=== PATIENT | male | born 1995 | race Caucasian/White ===

== ENCOUNTER 2017-06-01 15:34 | Emergency (ER) | payer SELFPAY ==
--- NOTE | 2017-06-01 16:29 | EDPHYS ---
Physician Documentation [facility] Name: Ed Murillo Age: 22 yrs Sex: Male : 1995 Arrival Date: 06/01/2017 Time: 15:38 Bed 12 Private MD: ED Physician Yusuf Vazquez HPI: 06/01 16:18 This 22 yrs old Male presents to ER via Ambulatory with complaints of kav Toothache. 16:18 The patient presents with broken tooth/teeth, pain, swelling. The problem is located in kav the lower left third molar, lower left second molar, lower left first molar, lower left first bicuspid, lower right first molar, lower right second molar and lower right third molar. Onset: The symptoms/episode began/occurred 3 week(s) ago. Duration: The symptoms are chronic, for 1 month(s). Modifying factors: The symptoms are alleviated by nothing, the symptoms are aggravated by air, chewing, cold fluids, food, hot fluids. Associated signs and symptoms: The patient has no apparent associated signs or symptoms. Severity of symptoms: At their worst the symptoms were moderate, just prior to arrival. The patient has experienced a previous episode, approximately 1 months ago. The patient has not recently seen a physician. no financial means for dental assistance. Historical: - Allergies: 15:51 No Known Allergies; hj - Home Meds: 15:51 None [Active]; hj - PMHx: 15:51 None; hj - PSHx: 15:51 None; hj - Immunization history:: Adult Immunizations unknown. - Social history:: Smoking status: Patient uses tobacco products, Patient/guardian denies using alcohol. - Family history:: not pertinent. - Hospitalizations: : No recent hospitalization is reported. ROS: 16:18 Constitutional: Negative for fever, chills, and weight loss, Eyes: Negative for injury, kav pain, redness, and discharge, Neck: Negative for injury, pain, and swelling, Cardiovascular: Negative for chest pain, palpitations, and edema, Respiratory: Negative for shortness of breath, cough, wheezing, and pleuritic chest pain, Abdomen/GI: Negative for abdominal pain, nausea, vomiting, diarrhea, and constipation, Back: Negative for injury and pain, : Negative for injury, bleeding, discharge, and swelling, MS/Extremity: Negative for injury and deformity, Skin: Negative for injury, rash, and discoloration, Neuro: Negative for headache, weakness, numbness, tingling, and seizure, Psych: Negative for depression, anxiety, suicide ideation, homicidal ideation, and hallucinations, Allergy/Immunology: Negative for hives, rash, and allergies, Endocrine: Negative for neck swelling, polydipsia, polyuria, polyphagia, and marked weight changes, Hematologic/Lymphatic: Negative for swollen nodes, abnormal bleeding, and unusual bruising. 16:18 ENT: Positive for dental pain, Gum pain of the lower right first molar, lower right second molar and lower right third molar, Teeth pain Negative for injury or acute deformity, sore throat, difficulty swallowing, difficulty handling secretions. Exam: 16:18 Constitutional: This is a well developed, well nourished patient who is awake, alert, kav and in no acute distress. Head/Face: Normocephalic, atraumatic. Eyes: Pupils equal round and reactive to light, extra-ocular motions intact. Lids and lashes normal. Conjunctiva and sclera are non-icteric and not injected. Cornea within normal limits. Periorbital areas with no swelling, redness, or edema. Neck: Trachea midline, no thyromegaly or masses palpated, and no cervical lymphadenopathy. Supple, full range of motion without nuchal rigidity, or vertebral point tenderness. No Meningismus. Chest/axilla: Normal chest wall appearance and motion. Nontender with no deformity. No lesions are appreciated. Cardiovascular: Regular rate and rhythm with a normal S1 and S2. No gallops, murmurs, or rubs. Normal PMI, no JVD. No pulse deficits. Respiratory: Lungs have equal breath sounds bilaterally, clear to auscultation and percussion. No rales, rhonchi or wheezes noted. No increased work of breathing, no retractions or nasal flaring. Abdomen/GI: Soft, non-tender, with normal bowel sounds. No distension or tympany. No guarding or rebound. No evidence of tenderness throughout. Back: No spinal tenderness. No costovertebral tenderness. Full range of motion. Skin: Warm, dry with normal turgor. Normal color with no rashes, no lesions, and no evidence of cellulitis. MS/ Extremity: Pulses equal, no cyanosis. Neurovascular intact. Full, normal range of motion. Neuro: Awake and alert, GCS 15, oriented to person, place, time, and situation. Cranial nerves II-XII grossly intact. Motor strength 5/5 in all extremities. Sensory grossly intact. Cerebellar exam normal. Normal gait. Psych: Awake, alert, with orientation to person, place and time. Behavior, mood, and affect are within normal limits. 16:18 ENT: Dental exam: abscess, that is moderate, specifically in the lower right first molar (#30), lower right second molar (#31) and lower right third molar (#32), dental caries, that is moderate, specifically in the lower left third molar (#17), lower left second molar (#18), lower left first molar (#19), lower left second bicuspid (#20), lower right first bicuspid (#28), lower right first molar (#30), lower right second molar (#31) and lower right third molar (#32), gum swelling, that is mild, missing teeth. Vital Signs: 15:51 BP 135 / 79; Pulse 75; Resp 18; Temp 98.2(TE); Pulse Ox 100% on R/A; Weight 56.7 kg; hj Height 5 ft. 7 in. (170.18 cm); Pain 9/10; 15:51 Body Mass Index 19.58 (56.70 kg, 170.18 cm) hj MDM: 15:50 Patient medically screened. kav 16:18 Data reviewed: vital signs, nurses notes. kav Administered Medications: 16:18 CANCELLED (Patient Eloped; change to augmentin): Amoxicillin 875 mg PO once kav 17:12 Drug: [place] (7.5 mg-325 mg) 1 tabs Route: PO; kb1 17:12 Follow up: Response: No adverse reaction; Pain is decreased kb1 17:12 Drug: Augmentin 875 mg Route: PO; kb1 17:12 Follow up: Response: No adverse reaction kb1 Disposition: 17:31 Co-signature as Attending Physician, Yusuf Vazquez MD I agree with the assessment and kdr plan of care. Disposition: 06/01/17 16:28 Discharged to Home. Impression: Dental caries, Dental caries on pit and fissure surface penetrating into dentin, Dental root caries. - Condition is Stable. - Discharge Instructions: Dental Abscess. - Prescriptions for Augmentin 875- 125 mg Oral Tablet - take 1 tablet by ORAL route every 12 hours for 10 days; 20 tablet. Tramadol 50 mg Oral Tablet - take 1 tablet by ORAL route every 8 hours as needed; 20 tablet. - Medication Reconciliation Form, Thank You Letter, Antibiotic Education, Prescription Opioid Use, Work release form form. - Follow up: Private Physician; When: 1 - 2 days; Reason: Recheck today's complaints, Continuance of care, Re-evaluation by your physician. Follow up: Earnest Chavez DDS; When: 1 - 2 days; Reason: Recheck today's complaints, Continuance of care, Re-evaluation by your physician. - Problem is new. - Symptoms are unchanged. Signatures: Yusuf Vazquez MD MD kdr Vern, Katherine, FNP FNP kav Joaquin, Henry RN RN hj Sakshi Mijares RN RN kb1 Corrections: (The following items were deleted from the chart) 16:18 16:16 Amoxicillin 875 mg PO once ordered. linwood palumbo
--- NOTE | 2017-06-01 16:29 | ER ---
Nurse's Notes [facility] Name: Ed Murillo Age: 22 yrs Sex: Male : 1995 Arrival Date: 06/01/2017 Time: 15:38 Bed 12 Private MD: Diagnosis: Dental caries;Dental caries on pit and fissure surface penetrating into dentin;Dental root caries Presentation: 06/01 15:50 Presenting complaint: Patient states: R lower tooth is aching; been bad today but its hj hurting for a couple of days now;. Transition of care: patient was not received from another setting of care. Onset of symptoms was June 01, 2017. Care prior to arrival: None. 15:50 Method Of Arrival: Ambulatory hj 15:50 Acuity: JOAQUIM 4 hj Triage Assessment: 15:51 General: Appears in no apparent distress. uncomfortable, Behavior is calm, cooperative, hj appropriate for age. Pain: Complains of pain in tooth. 15:53 EENT: Reports pain in R lower tooth. hj Historical: - Allergies: 15:51 No Known Allergies; hj - Home Meds: 15:51 None [Active]; hj - PMHx: 15:51 None; hj - PSHx: 15:51 None; hj - Immunization history:: Adult Immunizations unknown. - Social history:: Smoking status: Patient uses tobacco products, Patient/guardian denies using alcohol. - Family history:: not pertinent. - Hospitalizations: : No recent hospitalization is reported. Screenin:52 Abuse screen: Denies threats or abuse. Denies injuries from another. Nutritional hj screening: No deficits noted. Tuberculosis screening: No symptoms or risk factors identified. Fall Risk None identified. Vital Signs: 15:51 BP 135 / 79; Pulse 75; Resp 18; Temp 98.2(TE); Pulse Ox 100% on R/A; Weight 56.7 kg; hj Height 5 ft. 7 in. (170.18 cm); Pain 9/10; 15:51 Body Mass Index 19.58 (56.70 kg, 170.18 cm) ED Course: 15:38 Patient arrived in ED. rg4 15:49 Diandra Merlos FNP is [facility]. kav 15:49 Yusuf Vazquez MD is Attending Physician. kav 15:51 Triage completed. hj 15:51 Arm band placed on right wrist. hj 15:53 Patient has correct armband on for positive identification. Bed in low position. Call light in reach. 16:08 Herminia Obrien, RN is Primary Nurse. iw 16:26 Earnest Chavez DDS is Referral Physician. kav 19:01 No provider procedures requiring assistance completed. hj 19:02 Patient did not have IV access during this emergency room visit. Administered Medications: 16:18 CANCELLED (Patient Eloped; change to augmentin): Amoxicillin 875 mg PO once kav 17:12 Drug: [place] (7.5 mg-325 mg) 1 tabs Route: PO; kb1 17:12 Follow up: Response: No adverse reaction; Pain is decreased kb1 17:12 Drug: Augmentin 875 mg Route: PO; kb1 17:12 Follow up: Response: No adverse reaction kb1 Outcome: 16:28 Discharge ordered by MD. kav 17:13 Patient left the ED. kb1 19:02 Discharged to home ambulatory. 19:02 Condition: stable 19:02 Discharge instructions given to patient, Instructed on discharge instructions, follow up and referral plans. medication usage, Demonstrated understanding of instructions, follow-up care, medications, Prescriptions given X 2. Signatures: Diandra Merlos, POTATO LOADER POTATO LOADER Herminia Calloway, RN ANA Garcia Danielson RN RN hj Garcia, Rubi rg4 Sakshi Mijares RN RN kb1 Corrections: (The following items were deleted from the chart) 15:53 15:51 Pulse 75bpm; Resp 18bpm; Pulse Ox 100% RA; Temp 98.2F Temporal; 56.7 kg; Height 5 hj ft. 7 in.; BMI: 19.5; Pain 9/10; hj
[2017-06-01 17:17] VITALS: BP 135/79; TEMP 98.2; O2SAT 100
[2017-06-01] MEDS ORDERED: AMOX TR/K CLAV 400MG CHEW TAB PO ONE (17:24)
[2017-06-01] MEDS ORDERED: HYDROCODONE/APAP 7.5/325 MG TAB ONE (17:25)
[2017-06-01] MEDS ORDERED: AMOX/K CLAV 875 MG TAB ONE (17:25)
== END 2017-06-01 17:13 | disposition home or self-care (01) ==
LOC: ER 15:34
DX: K02.52 Dental caries on pit and fissure surface penetrating into dentin (principal); K02.7 Dental root caries; Z72.0 Tobacco use
CPT/HCPCS: 99283

== ENCOUNTER 2017-08-01 23:16 | Emergency (ER) | payer OTHER, SELFPAY ==
--- NOTE | 2017-08-02 00:06 | ER ---
Nurse's Notes [facility] Name: Ed Murillo Age: 22 yrs Sex: Male : 1995 Arrival Date: 08/01/2017 Time: 23:18 Bed 6 Private MD: Diagnosis: Allergic rhinitis, unspecified Presentation: 08/01 23:26 Presenting complaint: Patient states: Nasal congestion for a week and a half, tried OTC lp1 Xyzal with not relief; States pain to right nasal passage. Transition of care: patient was not received from another setting of care. Onset of symptoms was August 01, 2017. Risk Assessment: Do you want to hurt yourself or someone else? Patient reports no desire to harm self or others. Initial Sepsis Screen: Does the patient meet any 2 criteria? No. Patient's initial sepsis screen is negative. Does the patient have a suspected source of infection? No. Patient's initial sepsis screen is negative. Care prior to arrival: None. 23:26 Method Of Arrival: Ambulatory lp1 23:26 Acuity: JOAQUIM 4 lp1 Historical: - Allergies: 23:30 No Known Allergies; lp1 - Home Meds: 23:30 None [Active]; lp1 - PMHx: 23:30 None; lp1 - PSHx: 23:30 None; lp1 - Immunization history:: Adult Immunizations up to date. - Social history:: Smoking status: Patient uses tobacco products, smokes one-half pack cigarettes per day. Screenin:31 Abuse screen: Denies threats or abuse. Denies injuries from another. Nutritional lp1 screening: No deficits noted. Tuberculosis screening: No symptoms or risk factors identified. Fall Risk None identified. Assessment: 23:30 General: Appears in no apparent distress. Behavior is calm, cooperative, appropriate lp1 for age. Pain: Complains of pain in right side of nose and right nostril Pain currently is 6 out of 10 on a pain scale. Quality of pain is described as aching. Neuro: Level of Consciousness is awake, alert, obeys commands. Cardiovascular: Patient's skin is warm and dry. Respiratory: Respiratory effort is even, unlabored. GI: No signs and/or symptoms were reported involving the gastrointestinal system. : No signs and/or symptoms were reported regarding the genitourinary system. EENT: No signs and/or symptoms were reported regarding the EENT system. Derm: Skin is pink, warm \T\ dry. Musculoskeletal: Circulation, motion, and sensation intact. Vital Signs: 23:29 BP 128 / 77; Pulse 72; Resp 16; Temp 97.5(O); Pulse Ox 100% on R/A; Weight 54.43 kg; lp1 Height 5 ft. 7 in. (170.18 cm); Pain 6/10; 23:29 Body Mass Index 18.79 (54.43 kg, 170.18 cm) lp1 ED Course: 23:18 Patient arrived in ED. am2 23:26 Ana Alejandre, RN is Primary Nurse. lp1 23:28 Darrius Unger MD is Attending Physician. tw4 23:29 Triage completed. lp1 23:29 Arm band placed on left wrist. lp1 23:31 Patient has correct armband on for positive identification. lp1 05 00:14 No provider procedures requiring assistance completed. Patient did not have IV access mg2 during this emergency room visit. Administered Medications: No medications were administered Outcome: 00:05 Discharge ordered by . tw4 00:14 Discharged to home ambulatory. mg2 00:14 Condition: stable 00:14 Discharge instructions given to patient, Instructed on discharge instructions, follow up and referral plans. medication usage, Demonstrated understanding of instructions, follow-up care, medications, Prescriptions given X 1. 00:14 Patient left the ED. mg2 Signatures: Ana Alejandre, RN RN lp1 Donna Anton am2 Darrius Unger MD MD tw4 Patrick Hillman RN RN mg2
[2017-08-02 00:53] VITALS: BP 128/77; TEMP 97.5; O2SAT 100
--- NOTE | 2017-08-03 00:15 | EDPHYS ---
Physician Documentation [facility] Name: Ed Murlilo Age: 22 yrs Sex: Male : 1995 Arrival Date: 08/01/2017 Time: 23:18 Bed 6 Private MD: ED Physician Darrius Unger HPI: 08/02 00:49 This 22 yrs old Male presents to ER via Ambulatory with complaints of Nasal tw4 Congestion. 00:49 The patient or guardian reports nasal congestion. Onset: The symptoms/episode tw4 began/occurred 1 week(s) ago. Severity of symptoms: At their worst the symptoms were moderate, in the emergency department the symptoms are unchanged. Modifying factors: The symptoms are alleviated by nothing, the symptoms are aggravated by nothing. Associated signs and symptoms: The patient has no apparent associated signs or symptoms. Historical: - Allergies: 08/01 23:30 No Known Allergies; lp1 - Home Meds: 23:30 None [Active]; lp1 - PMHx: 23:30 None; lp1 - PSHx: 23:30 None; lp1 - Immunization history:: Adult Immunizations up to date. - Social history:: Smoking status: Patient uses tobacco products, smokes one-half pack cigarettes per day. ROS: 08/02 00:49 Constitutional: Negative for fever, chills, and weight loss, Cardiovascular: Negative tw4 for chest pain, palpitations, and edema, Respiratory: Negative for shortness of breath, cough, wheezing, and pleuritic chest pain, Abdomen/GI: Negative for abdominal pain, nausea, vomiting, diarrhea, and constipation, Back: Negative for injury and pain. Exam: 00:49 Constitutional: This is a well developed, well nourished patient who is awake, alert, tw4 and in no acute distress. Head/Face: Normocephalic, atraumatic. 00:49 ENT: External ear(s): are unremarkable, Ear canal(s): are normal, Nose: External nose: no obvious acute abnormality, Nasal septum: is midline, Nasal mucosa: normal, Turbinates: are swollen bilaterally. Vital Signs: 08/01 23:29 BP 128 / 77; Pulse 72; Resp 16; Temp 97.5(O); Pulse Ox 100% on R/A; Weight 54.43 kg; lp1 Height 5 ft. 7 in. (170.18 cm); Pain 6/10; 23:29 Body Mass Index 18.79 (54.43 kg, 170.18 cm) lp1 MDM: 23:28 Patient medically screened. tw4 08/02 00:52 Differential Diagnosis: Upper Respiratory Infection Allergic Rhinitis Viral Syndrome. tw4 Data reviewed: vital signs, nurses notes. Counseling: I had a detailed discussion with the patient and/or guardian regarding: the historical points, exam findings, and any diagnostic results supporting the discharge/admit diagnosis. Special discussion: I discussed with the patient/guardian in detail that at this point there is no indication for admission to the hospital. It is understood, however, that if the symptoms persist or worsen the patient needs to return immediately for re-evaluation. Administered Medications: No medications were administered Disposition: 08/02/17 00:05 Discharged to Home. Impression: Allergic rhinitis, unspecified. - Condition is Stable. - Discharge Instructions: Allergies, Hay Fever, Allergic Rhinitis. - Prescriptions for Flonase Allergy Relief 50 mcg/actuation Nasal spray,suspension - inhale 1 spray by INTRANASAL route once daily; 1 unit. - Medication Reconciliation Form, Thank You Letter, Antibiotic Education, Prescription Opioid Use, Work release form form. - Follow up: Private Physician; When: As needed; Reason: Recheck today's complaints, Continuance of care, Re-evaluation by your physician. - Problem is chronic. - Symptoms are unchanged. Signatures: Ana Alejandre RN RN lp1 Darrius Unger MD MD tw4 Patrick Hillman RN RN mg2 Corrections: (The following items were deleted from the chart) 00:14 00:05 08/02/2017 00:05 Discharged to Home. Impression: Allergic rhinitis, unspecified. mg2 Condition is Stable. Forms are Medication Reconciliation Form, Thank You Letter, Antibiotic Education, Prescription Opioid Use. Follow up: Private Physician; When: As needed; Reason: Recheck today's complaints, Continuance of care, Re-evaluation by your physician. Problem is chronic. Symptoms are unchanged. tw4
== END 2017-08-02 00:14 | disposition home or self-care (01) ==
LOC: ER 23:16
DX: J30.9 Allergic rhinitis, unspecified (principal); F17.210 Nicotine dependence, cigarettes, uncomplicated
CPT/HCPCS: 99282

== ENCOUNTER 2017-09-26 06:09 | Emergency (ER) | payer OTHER ==
[2017-09-26] MEDS ORDERED: FLUORESCEIN SODIUM 0.6 MG/WRAP ONE (06:28)
[2017-09-26] MEDS ORDERED: TETRACAINE HCL 0.5% 2ML OPTH ONE (06:28)
--- NOTE | 2017-09-26 06:44 | ER ---
Nurse's Notes [facility] Name: Ed Murillo Age: 22 yrs Sex: Male : 1995 Arrival Date: 09/26/2017 Time: 06:13 Bed 5 Private MD: Diagnosis: Injury of conjunctiva and corneal abrasion without foreign body Presentation: 09/26 06:20 Presenting complaint: Patient states: he was mowing yesterday and thinks he got a bb foreign body in his left eye, it felt better but then this morning it started hurting when he blinks and eye is red. Transition of care: patient was not received from another setting of care. Onset of symptoms was September 25, 2017. Risk Assessment: Do you want to hurt yourself or someone else? Patient reports no desire to harm self or others. Initial Sepsis Screen: Does the patient meet any 2 criteria? No. Patient's initial sepsis screen is negative. Does the patient have a suspected source of infection? No. Patient's initial sepsis screen is negative. Care prior to arrival: None. 06:20 Method Of Arrival: Ambulatory bb 06:20 Acuity: JOAQUIM 3 bb Historical: - Allergies: 06:22 No Known Allergies; bb - Home Meds: 06:22 None [Active]; bb - PMHx: 06:22 None; bb - PSHx: 06:22 Tonsillectomy; addenoids; bb - Immunization history:: Adult Immunizations up to date, Last tetanus immunization: unknown. - Social history:: Smoking status: Patient uses tobacco products, smokes one-half pack cigarettes per day, Patient/guardian denies using alcohol, street drugs. - Ebola Screening: : No symptoms or risks identified at this time. Screenin:32 Abuse screen: Denies threats or abuse. Nutritional screening: No deficits noted. bb Tuberculosis screening: No symptoms or risk factors identified. Fall Risk None identified. Assessment: 06:32 General: Appears in no apparent distress. Behavior is calm, cooperative. Pain: bb Complains of pain in left eye Pain currently is 7 out of 10 on a pain scale. Pain began 1 day ago. Neuro: Level of Consciousness is awake, alert, obeys commands, Oriented to person, place, time, situation. Cardiovascular: No deficits noted. Respiratory: Respiratory effort is even, unlabored. GI: No deficits noted. No signs and/or symptoms were reported involving the gastrointestinal system. EENT: Eyes left eye reddened. Derm: Skin is pink, warm \T\ dry. Musculoskeletal: Circulation, motion, and sensation intact. 06:58 Reassessment: Patient is alert, oriented x 3, equal unlabored respirations, skin bb warm/dry/pink. pt verbalized understanding of and agrees to plan of care discharge instructions given pt ambulated with steady gait to exit Patient states feeling better. Vital Signs: 06:22 BP 129 / 81; Pulse 81; Resp 16 S; Temp 98.1(O); Pulse Ox 99% on R/A; Weight 56.7 kg bb (R); Height 5 ft. 9 in. (175.26 cm) (R); Pain 7/10; 06:22 Body Mass Index 18.46 (56.70 kg, 175.26 cm) bb Visual Acuity: 06:57 Left Eye Visual acuity 20/25, Pupil size 4 mm, ; Right Eye Visual acuity 20/15, Pupil bb size 4 mm, ; Both Eyes Visual acuity 20/15; Without Lenses; ED Course: 06:13 Patient arrived in ED. es 06:19 Laly Nolen FNP-C is [facility]. snw 06:19 Yusuf Vazquez MD is Attending Physician. snw 06:21 Triage completed. bb 06:22 Arm band placed on Patient placed in an exam room, on a stretcher, on pulse oximetry. bb 06:32 Patient has correct armband on for positive identification. Bed in low position. Call bb light in reach. Side rails up X 1. Pulse ox on. 06:32 NIBP on. bb 06:32 Assist provider with eye exam of left eye. using fluorescein stain, Performed by Laly PERSAUD Patient tolerated well. 06:41 Charanjit Barker, ANA is Primary Nurse. bp 06:42 Patient did not have IV access during this emergency room visit. bp 06:43 Niki Scott MD is Referral Physician. snw Administered Medications: 06:28 Drug: Tetracaine Drops 0.5 % 1 drops Route: Ophthalmic; Site: left eye; bb 06:51 Follow up: Response: Pain is decreased bb 06:28 Drug: Fluorescein Strip 1 strip Route: Ophthalmic; Site: left eye; bb 06:50 Drug: Gentamicin Drops 0.3 % 2 drops Route: Ophthalmic; Site: left eye; bb 06:57 Follow up: Response: No adverse reaction bb 06:50 Drug: Tetanus-Diphtheria Toxoid Adult 0.5 ml {Strike On Machine Operator: [employer]. Exp: bb 11/11/2019. Lot #: [id number]. } Route: IM; Site: right deltoid; 06:57 Follow up: Response: No adverse reaction bb Outcome: 06:43 Discharge ordered by . lv 06:58 Discharged to home ambulatory. bb 06:58 Condition: improved 06:58 Discharge instructions given to patient, Instructed on discharge instructions, follow up and referral plans. medication usage, Demonstrated understanding of instructions, follow-up care, medications, Prescriptions given X 2. 06:59 Patient left the ED. bb Signatures: Layl Nolen, GIFTED PROGRAM TEACHER-C GIFTED PROGRAM TEACHER-Cs[employer] Melina Albert Brenda, RN RN bb Charanjit Barker RN RN bp
--- NOTE | 2017-09-26 06:44 | EDPHYS ---
Physician Documentation [facility] Name: Ed Murillo Age: 22 yrs Sex: Male : 1995 Arrival Date: 09/26/2017 Time: 06:13 Bed 5 Private MD: ED Physician Yusuf Vazquez HPI: 09/26 06:47 This 22 yrs old Male presents to ER via Ambulatory with complaints of Redness snw to left Eye. 06:47 The patient is experiencing foreign body sensation, redness, tearing, to the left eye, snw caused by debris. Onset: The symptoms/episode began/occurred suddenly, yesterday. Duration: the symptoms are continuous. Aggravated by rubbing, Alleviated by keeping eyes closed. Associated signs and symptoms: Pertinent positives: None. Patient does not utilize any form of vision correction. Severity of symptoms: At their worst the symptoms were mild in the emergency department the symptoms are unchanged. It is unknown whether or not the patient has had similar symptoms in the past. It is unknown whether or not the patient has recently seen a physician. Pt mowing yesterday and thought he got dust or something in his eye. Historical: - Allergies: 06:22 No Known Allergies; bb - Home Meds: 06:22 None [Active]; bb - PMHx: 06:22 None; bb - PSHx: 06:22 Tonsillectomy; addenoids; bb - Immunization history:: Adult Immunizations up to date, Last tetanus immunization: unknown. - Social history:: Smoking status: Patient uses tobacco products, smokes one-half pack cigarettes per day, Patient/guardian denies using alcohol, street drugs. - Ebola Screening: : No symptoms or risks identified at this time. ROS: 06:46 Constitutional: Negative for fever, chills, and weight loss, ENT: Negative for injury, snw pain, and discharge, Neck: Negative for injury, pain, and swelling, Cardiovascular: Negative for chest pain, palpitations, and edema, Respiratory: Negative for shortness of breath, cough, wheezing, and pleuritic chest pain, Abdomen/GI: Negative for abdominal pain, nausea, vomiting, diarrhea, and constipation, Back: Negative for injury and pain, : Negative for injury, bleeding, discharge, and swelling, MS/Extremity: Negative for injury and deformity, Skin: Negative for injury, rash, and discoloration, Neuro: Negative for headache, weakness, numbness, tingling, and seizure, Psych: Negative for depression, anxiety, suicide ideation, homicidal ideation, and hallucinations. 06:46 Eyes: Positive for pain, redness, tearing, of the left eye. Exam: 06:44 Constitutional: This is a well developed, well nourished patient who is awake, alert, snw and in no acute distress. Head/Face: Normocephalic, atraumatic. Eyes: Pupils equal round and reactive to light, extra-ocular motions intact. Lids and lashes normal. Conjunctiva and sclera are non-icteric. Left conjunctiva injected, no noted abrasion, + symptomatic, no foreign body. Lid flipped, no foreign body. Cornea within normal limits. Periorbital areas with no swelling, redness, or edema. ENT: Nares patent. No nasal discharge, no septal abnormalities noted. Tympanic membranes are normal and external auditory canals are clear. Oropharynx with no redness, swelling, or masses, exudates, or evidence of obstruction, uvula midline. Mucous membranes moist. Neck: Trachea midline, no thyromegaly or masses palpated, and no cervical lymphadenopathy. Supple, full range of motion without nuchal rigidity, or vertebral point tenderness. No Meningismus. Chest/axilla: Normal chest wall appearance and motion. Nontender with no deformity. No lesions are appreciated. Cardiovascular: Regular rate and rhythm with a normal S1 and S2. No gallops, murmurs, or rubs. Normal PMI, no JVD. No pulse deficits. Respiratory: Lungs have equal breath sounds bilaterally, clear to auscultation and percussion. No rales, rhonchi or wheezes noted. No increased work of breathing, no retractions or nasal flaring. Abdomen/GI: Soft, non-tender, with normal bowel sounds. No distension or tympany. No guarding or rebound. No evidence of tenderness throughout. Back: No spinal tenderness. No costovertebral tenderness. Full range of motion. Skin: Warm, dry with normal turgor. Normal color with no rashes, no lesions, and no evidence of cellulitis. MS/ Extremity: Pulses equal, no cyanosis. Neurovascular intact. Full, normal range of motion. Neuro: Awake and alert, GCS 15, oriented to person, place, time, and situation. Cranial nerves II-XII grossly intact. Motor strength 5/5 in all extremities. Sensory grossly intact. Cerebellar exam normal. Normal gait. Vital Signs: 06:22 BP 129 / 81; Pulse 81; Resp 16 S; Temp 98.1(O); Pulse Ox 99% on R/A; Weight 56.7 kg bb (R); Height 5 ft. 9 in. (175.26 cm) (R); Pain 7/10; 06:22 Body Mass Index 18.46 (56.70 kg, 175.26 cm) bb Visual Acuity: 06:57 Left Eye Visual acuity 20/25, Pupil size 4 mm, ; Right Eye Visual acuity 20/15, Pupil bb size 4 mm, ; Both Eyes Visual acuity 20/15; Without Lenses; MDM: 06:24 Patient medically screened. snw 06:45 Data reviewed: vital signs, nurses notes. Data interpreted: Pulse oximetry: on room air snw is 99 %. Interpretation: normal. Counseling: I had a detailed discussion with the patient and/or guardian regarding: the historical points, exam findings, and any diagnostic results supporting the discharge/admit diagnosis, the presence of at least one elevated blood pressure reading (>120/80) during this emergency department visit, lab results, the need for outpatient follow up, to return to the emergency department if symptoms worsen or persist or if there are any questions or concerns that arise at home, smoking cessation. Special discussion: I discussed in detail with the patient the higher chance of wound infection based on his presenting history. Based on the history and exam findings, there is no indication for further emergent testing or inpatient evaluation. I discussed with the patient/guardian the need to see the opthamologist for further evaluation of the symptoms, I discussed with the patient/guardian the need to see the primary care provider for further evaluation of the symptoms. 09/26 06:29 Order name: Eye Tray; Complete Time: 06:29 bb 09/26 06:46 Order name: Visual Acuity; Complete Time: 06:57 snw Administered Medications: 06:28 Drug: Tetracaine Drops 0.5 % 1 drops Route: Ophthalmic; Site: left eye; bb 06:51 Follow up: Response: Pain is decreased bb 06:28 Drug: Fluorescein Strip 1 strip Route: Ophthalmic; Site: left eye; bb 06:50 Drug: Gentamicin Drops 0.3 % 2 drops Route: Ophthalmic; Site: left eye; bb 06:57 Follow up: Response: No adverse reaction bb 06:50 Drug: Tetanus-Diphtheria Toxoid Adult 0.5 ml {[employer]: [employer]. Exp: bb 11/11/2019. Lot #: [id number]. } Route: IM; Site: right deltoid; 06:57 Follow up: Response: No adverse reaction bb Disposition: 09/26/17 06:43 Discharged to Home. Impression: Injury of conjunctiva and corneal abrasion without foreign body. - Condition is Stable. - Discharge Instructions: Corneal Abrasion, VIS, Tetanus, Diphtheria (Td) - CDC. - Prescriptions for Vigamox 0.5 % Ophthalmic Drops - instill 1 drop by OPHTHALMIC route every 8 hours for 7 days; 5 milliliter. Diclofenac Sodium 75 mg Oral Tablet Sustained Release - take 1 tablet by ORAL route 2 times per day; 30 tablet. - Work release form, Family Work Release, Medication Reconciliation Form, Thank You Letter, Antibiotic Education, Prescription Opioid Use form. - Follow up: Private Physician; When: As needed; Reason: Worsening of condition. Follow up: Niki Scott MD; When: Tomorrow; Reason: Recheck today's complaints, Continuance of care. Addendum: 10/09/2017 07:14 Co-signature as Attending Physician, Yusuf Vazquez MD I agree with the assessment and k dr plan of care. Signatures: Yusuf Vazquez MD MD [facility] Laly Nolen, SUPERIOR COURT CLERK-C SUPERIOR COURT CLERK-Csnw Michaela Echeverria RN RN bb Corrections: (The following items were deleted from the chart) 09/26 06:59 06:43 09/26/2017 06:43 Discharged to Home. Impression: Injury of conjunctiva and bb corneal abrasion without foreign body. Condition is Stable. Forms are Medication Reconciliation Form, Thank You Letter, Antibiotic Education, Prescription Opioid Use. Follow up: Private Physician; When: As needed; Reason: Worsening of condition. Follow up: Niki Scott; When: Tomorrow; Reason: Recheck today's complaints, Continuance of care. snw
[2017-09-26] MEDS ORDERED: GENTAMICIN 0.3% OPTH DROP 5ML ONE (06:50)
[2017-09-26] MEDS ORDERED: TETANUS & DIPHTHERIA TOX,ADULT 0.5 ML VIAL ONE (06:50)
[2017-09-26 07:02] VITALS: BP 129/81; TEMP 98.1; O2SAT 99
== END 2017-09-26 06:59 | disposition home or self-care (01) ==
LOC: ER 06:09
DX: H10.9 Unspecified conjunctivitis (principal); F17.210 Nicotine dependence, cigarettes, uncomplicated; Z23 Encounter for immunization
CPT/HCPCS: 90714; 99284

== ENCOUNTER 2020-05-28 19:06 | Emergency (ER) | payer SELFPAY ==
--- NOTE | 2020-05-28 21:05 | ER ---
Nurse's Notes [facility] Name: Ed Murillo Age: 25 yrs Sex: Male : 1995 Arrival Date: 05/28/2020 Time: 19:08 Bed 25 Private MD: Diagnosis: Laceration without foreign body of right hand-index finger Presentation: 05/28 19:14 Chief complaint: Patient states: Caught finger in bike chain yesterday around 1700. ll1 Laceration to tip of finger, bleeding controlled. Numbness to palm area. Coronavirus screen: Client denies travel out of the [place] in the last 14 days. At this time, the client does not indicate any symptoms associated with coronavirus-19. Ebola Screen: Patient denies travel to an Ebola-affected area in the 21 days before illness onset. Initial Sepsis Screen: Does the patient meet any 2 criteria? HR > 90 bpm. No. Patient's initial sepsis screen is negative. Does the patient have a suspected source of infection? Yes: Skin breakdown/wound. Risk Assessment: Do you want to hurt yourself or someone else? Patient reports no desire to harm self or others. Onset of symptoms was May 27, 2020. 19:14 Method Of Arrival: Ambulatory ll1 19:14 Acuity: JOAQUIM 4 ll1 Historical: - Allergies: 19:17 No Known Allergies; ll1 - PMHx: 19:17 kidney problems; ll1 - PSHx: 19:17 Tonsillectomy; Adenoids; ll1 - Immunization history:: Flu vaccine is not up to date. Last tetanus immunization: unknown. - Social history:: Smoking status: Patient reports the use of cigarette tobacco products, smokes one-half pack cigarettes per day. - Family history:: not pertinent. Vital Signs: 19:14 BP 138 / 89; Pulse 105; Resp 17; Temp 98.7; Pulse Ox 100% ; Weight 58.97 kg; Height 5 ll1 ft. 7 in. (170.18 cm); Pain 3/10; 19:14 Body Mass Index 20.36 (58.97 kg, 170.18 cm) ll1 ED Course: 19:08 Patient arrived in ED. cl3 19:16 Triage completed. ll1 19:17 Arm band placed on. ll1 20:27 Jun Cai MD is Attending Physician. [facility] 20:50 Emily Marivn, RN is Primary Nurse. dm5 21:04 Morgan Phelps MD is Referral Physician. jerrell 21:14 Hand Right 3 View XRAY In Process Unspecified. 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 Exp: dm5 06/28/2021. Lot #: [id number]. } Route: IM; Site: right deltoid; 22:15 Follow up: Response: No adverse reaction; No change in condition dm5 22:11 Drug: Neosporin Ointment 1 application Route: Topical; Site: affected area; dm5 05/29 06:38 Follow up: Response: No adverse reaction dm5 Outcome: 05/28 21:05 Discharge ordered by . jerrell 22:12 Patient left the ED. dm5 Signatures: Dispatcher [employer] EDMS Emily Marvin, RN RN dm5 Jun Cai MD MD cha Lewis, Charde 3 Mili Mcmillan RN RN ll1 Corrections: (The following items were deleted from the chart) 21:56 20:30 Bupivacaine (0.5 %) 4 ml 10 ml Infiltration 10 ml dm5 dm5
--- NOTE | 2020-05-28 21:05 | EDPHYS ---
Physician Documentation [facility] Name: Ed Murillo Age: 25 yrs Sex: Male : 1995 Arrival Date: 05/28/2020 Time: 19:08 Bed 25 Private MD: ED Physician Jun Cai HPI: 05/28 20:50 This 25 yrs old Male presents to ER via Ambulatory with complaints of jerrell Laceration To Finger. 20:50 The patient or guardian reports decreased range of motion, pain. The complaints affect jerrell the. Context: The problem was sustained on a street or driveway. Onset: The symptoms/episode began/occurred 24 hour(s) ago. Modifying factors: The symptoms are alleviated by pressure to area. Severity of symptoms: At their worst the symptoms were mild, moderate, in the emergency department the symptoms are actually worse. The patient has not experienced similar symptoms in the past. Historical: - Allergies: 19:17 No Known Allergies; ll1 - PMHx: 19:17 kidney problems; ll1 - PSHx: 19:17 Tonsillectomy; Adenoids; ll1 - Immunization history:: Flu vaccine is not up to date. Last tetanus immunization: unknown. - Social history:: Smoking status: Patient reports the use of cigarette tobacco products, smokes one-half pack cigarettes per day. - Family history:: not pertinent. ROS: 20:50 Constitutional: Negative for fever, chills, and weight loss, Eyes: Negative for injury, jerrell pain, redness, and discharge, ENT: Negative for injury, pain, and discharge, Neck: Negative for injury, pain, and swelling, Cardiovascular: Negative for chest pain, palpitations, and edema, Respiratory: Negative for shortness of breath, cough, wheezing, and pleuritic chest pain, Abdomen/GI: Negative for abdominal pain, nausea, vomiting, diarrhea, and constipation, Back: Negative for injury and pain, : Negative for injury, bleeding, discharge, and swelling, Skin: Negative for injury, rash, and discoloration, Neuro: Negative for headache, weakness, numbness, tingling, and seizure, Psych: Negative for depression, anxiety, suicide ideation, homicidal ideation, and hallucinations, Allergy/Immunology: Negative for hives, rash, and allergies, Endocrine: Negative for neck swelling, polydipsia, polyuria, polyphagia, and marked weight changes, Hematologic/Lymphatic: Negative for swollen nodes, abnormal bleeding, and unusual bruising. 20:50 MS/extremity: Positive for decreased range of motion, laceration, pain, swelling, tenderness, of the dorsal aspect of distal phalanx of right index finger, palmar aspect of distal phalanx of right index finger and right index fingernail. Exam: 20:50 Constitutional: This is a well developed, well nourished patient who is awake, alert, ejrrell and in no acute distress. Head/Face: Normocephalic, atraumatic. Eyes: Pupils equal round and reactive to light, extra-ocular motions intact. Lids and lashes normal. Conjunctiva and sclera are non-icteric and not injected. Cornea within normal limits. Periorbital areas with no swelling, redness, or edema. ENT: Nares patent. No nasal discharge, no septal abnormalities noted. Tympanic membranes are normal and external auditory canals are clear. Oropharynx with no redness, swelling, or masses, exudates, or evidence of obstruction, uvula midline. Mucous membranes moist. Neck: Trachea midline, no thyromegaly or masses palpated, and no cervical lymphadenopathy. Supple, full range of motion without nuchal rigidity, or vertebral point tenderness. No Meningismus. Chest/axilla: Normal chest wall appearance and motion. Nontender with no deformity. No lesions are appreciated. Cardiovascular: Regular rate and rhythm with a normal S1 and S2. No gallops, murmurs, or rubs. Normal PMI, no JVD. No pulse deficits. Respiratory: Lungs have equal breath sounds bilaterally, clear to auscultation and percussion. No rales, rhonchi or wheezes noted. No increased work of breathing, no retractions or nasal flaring. Abdomen/GI: Soft, non-tender, with normal bowel sounds. No distension or tympany. No guarding or rebound. No evidence of tenderness throughout. Back: No spinal tenderness. No costovertebral tenderness. Full range of motion. Male : Normal genitalia with no discharge or lesions. Skin: Warm, dry with normal turgor. Normal color with no rashes, no lesions, and no evidence of cellulitis. Neuro: Awake and alert, GCS 15, oriented to person, place, time, and situation. Cranial nerves II-XII grossly intact. Motor strength 5/5 in all extremities. Sensory grossly intact. Cerebellar exam normal. Normal gait. Psych: Awake, alert, with orientation to person, place and time. Behavior, mood, and affect are within normal limits. 20:50 Musculoskeletal/extremity: Extremities: noted in the palmar aspect of distal phalanx of right index finger: decreased ROM, laceration, ROM: limited active range of motion due to pain, limited passive range of motion due to pain, Circulation is intact in all extremities. Sensation intact. Vital Signs: 19:14 BP 138 / 89; Pulse 105; Resp 17; Temp 98.7; Pulse Ox 100% ; Weight 58.97 kg; Height 5 ll1 ft. 7 in. (170.18 cm); Pain 3/10; 19:14 Body Mass Index 20.36 (58.97 kg, 170.18 cm) ll1 Laceration: 21:02 Wound Repair of 2cm ( 0.8in ) subcutaneous laceration to right index fingernail and jerrell palmar aspect of distal phalanx of right index finger. Irregularly shaped.. Distal neuro/vascular/tendon intact. Anesthesia: Digital block administered with 4 mls of 1% lidocaine, Digital block administered with 4 mls of 0.5% marcaine. Wound prep: Moderate cleansing by me. Skin closed with 2 5-0 Prolene using interrupted sutures and sterile technique. Dressed with Neosporin. Patient tolerated well. MDM: 20:27 Patient medically screened. [facility] 21:01 Differential diagnosis: open fracture. Data reviewed: vital signs, nurses notes, [facility] radiologic studies, plain films. 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 Test interpretation: by ED physician or midlevel provider: plain radiologic studies. 21:02 Counseling: I had a detailed discussion with the patient and/or guardian regarding: the [facility] historical points, exam findings, and any diagnostic results supporting the discharge/admit diagnosis, radiology results, the need for outpatient follow up, for definitive care, a hand specialist. 05/28 20:49 Order name: Hand Right 3 View XRAY [facility] 05/28 20:49 Order name: Prolene, Sutures; Complete Time: 21:21 [facility] 05/28 20:49 Order name: Dressing - Wound; Complete Time: 21:21 [facility] 05/28 20:49 Order name: Gloves, Sterile; Complete Time: 21:21 [facility] 05/28 20:49 Order name: Setup Suture Tray; Complete Time: 21:20 [facility] Administered Medications: 21:00 Drug: Lidocaine (1 %) 4 ml Volume: 5 ml; Route: Infiltration; [facility] 21:00 Drug: Bupivacaine (0.5 %) 4 ml Volume: 10 ml; Route: Infiltration; [facility] 05/29 06:35 Follow up: Response: Pain is decreased [facility] 05/28 21:52 Drug: Ancef (cefazolin) 1 grams Route: IM; Site: left gluteus; [facility] 22:15 Follow up: Response: No adverse reaction; No change in condition [facility] 21:54 Drug: Tetanus-Diphtheria Toxoid Adult 0.5 ml {Animal [employer]: [employer]. Exp: [facility] 06/28/2021. Lot #: [id number]. } Route: IM; Site: right deltoid; 22:15 Follow up: Response: No adverse reaction; No change in condition [facility] 22:11 Drug: Neosporin Ointment 1 application Route: Topical; Site: affected area; [facility] 05/29 06:38 Follow up: Response: No adverse reaction [facility] Disposition: 05/28/20 21:05 Discharged to Home. Impression: Laceration without foreign body of right hand - index finger. - Condition is Stable. - Discharge Instructions: Laceration Care, Adult, Laceration Care, Adult, [id number]. - Prescriptions for Keflex 500 mg Oral Capsule - take 1 capsule by ORAL route every 6 hours for 7 days; 28 capsule. Tylenol- Codeine #3 300-30 mg Oral Tablet - take 2 tablets by ORAL route every 4-6 hours As needed; 24 tablet. - Work release form, Medication Reconciliation Form, Thank You Letter, Antibiotic Education, Prescription Opioid Use form. - Follow up: Private Physician; When: 2 - 3 days; Reason: Recheck today's complaints, Continuance of care, Re-evaluation by your physician. Follow up: Morgan Phelps MD; When: 2 - 3 days; Reason: Recheck today's complaints, Re-evaluation by your physician. - Problem is new. - Symptoms have improved. Signatures: Dispatcher [employer] Emily Villa, ANA RN dm5 Jun Cai MD MD cha Lewis, Lynsay, RN RN ll1 Corrections: (The following items were deleted from the chart) 05/28 22:12 21:05 05/28/2020 21:05 Discharged to Home. Impression: Laceration without foreign body dm5 of right hand - index finger. Condition is Stable. Forms are Medication Reconciliation Form, Thank You Letter, Antibiotic Education, Prescription Opioid Use. Follow up: Private Physician; When: 2 - 3 days; Reason: Recheck today's complaints, Continuance of care, Re-evaluation by your physician. Follow up: Morgan Phelps; When: 2 - 3 days; Reason: Recheck today's complaints, Re-evaluation by your physician. Problem is new. Symptoms have improved. jerrell
[2020-05-28] MEDS ORDERED: LIDOCAINE 1% MPF 5 ML VIAL ONE (21:09)
[2020-05-28] MEDS ORDERED: BUPIVACAINE 0.5% PF 10 ML VIAL ONE (21:10)
--- NOTE | 2020-05-28 21:31 | RAD REPORT ---
EXAM DESCRIPTION: RAD - Hand Right 3 View - 05/28/2020 9:15 pm CLINICAL HISTORY: PAINblunt force trauma distal second digit COMPARISON: No comparisons FINDINGS: Soft tissue wound is present at the tip of the second digit. No foreign body is seen. No t uft fracture or acute bone finding. Elsewhere in the hand no acute bone or joint finding. IMPRESSION: Second digit soft tissue wound without foreign body. No acute bone or joint finding.
[2020-05-28] MEDS ORDERED: CEFAZOLIN SODIUM 1 GM/VIAL ONE (22:02)
[2020-05-28] MEDS ORDERED: WATER FOR INJ,STERILE 10 ML ONE (22:02)
[2020-05-28] MEDS ORDERED: TETANUS & DIPHTHERIA TOX,ADULT 0.5 ML VIAL ONE (22:03)
[2020-05-28 22:17] VITALS: BP 138/89; TEMP 98.7; O2SAT 100
== END 2020-05-28 22:12 | disposition home or self-care (01) ==
LOC: ER 19:06
PROC: 0HQFXZZ Repair Right Hand Skin, External Approach (ICD-10-PCS; principal; 2020-05-28)
DX: S61.310A Laceration without foreign body of right index finger with damage to nail, initial encounter (principal); Z23 Encounter for immunization; F17.210 Nicotine dependence, cigarettes, uncomplicated; X58.XXXA Exposure to other specified factors, initial encounter
CPT/HCPCS: 90471; 90714; 96372; 99283; J0690